=== PATIENT | female | born 1935 | race Caucasian/White ===

== ENCOUNTER 2016-09-23 14:43 | Emergency (ER) | payer MEDICARE, OTHER ==
--- NOTE | 2016-10-22 17:08 | ER ---
ADMIT: 09/23/2016 RM/LOC: ER [facility] MR#: [id number] [address] [id number] RADHA LOUIE [address] [place] [id number] Emergency Room Report SEX: F AGE: 81 : 1935 DATE: 09/23/2016 HISTORY OF PRESENT ILLNESS: A 81-year-old who comes to the Emergency Department with chest discomfort x1 hour duration. Sudden onset occurred at rest, described it initially as severe, currently is gone. She has current indigestion with no radiation. She states Coca [employer]a removed the discomfort. REVIEW OF SYSTEMS: Essentially negative. PAST MEDICAL HISTORY: Hypertension and brain aneurysm. PHYSICAL EXAMINATION: GENERAL: A 81-year-old year female, no acute distress. HEENT: Normocephalic. LUNGS: Clear to auscultation. CARDIOVASCULAR: Regular rate and rhythm. No murmurs, rubs, or gallops. ABDOMEN: Soft, nontender, positive bowel sounds. No mass, guarding, or edema was present in the lower extremities. NEUROLOGIC: No focal abnormalities. EMERGENCY DEPARTMENT COURSE: Cardiac workup was initiated. CBC was normal. Chemistries significant for potassium of 3.5. Cardiac markers were within normal limits. EKG was normal, chest x-ray normal. Stress test was reviewed from 2014 which was unremarkable. The patient was subsequently diagnosed with dyspnea and discharged home. Instructed to follow up with Zohaib Hernandez this coming Sunday. Lio Paul MD/ leanna JOB #: [id number] CC: Lit Mckeon MD, Attending Physician Zach Hernandez, Family Physician
== END 2016-09-23 16:08 | disposition home or self-care (01) ==
LOC: ER 14:43
DX: R10.13 Epigastric pain (principal); I10 Essential (primary) hypertension; Z79.899 Other long term (current) drug therapy

== ENCOUNTER → 2016-09-27 | Outpatient (CLI) | payer MEDICARE, OTHER | END | disposition home or self-care (01) | LOC: RAD.S 09-25 14:02 | DX: R10.9 Unspecified abdominal pain (principal); K44.9 Diaphragmatic hernia without obstruction or gangrene; K21.9 Gastro-esophageal reflux disease without esophagitis; K80.20 Calculus of gallbladder without cholecystitis without obstruction; R07.9 Chest pain, unspecified ==